=== PATIENT | female | born 1965 | race Asian ===

== ENCOUNTER 2019-07-02 16:54 | Inpatient (IN) | payer BC ==
[~2019-07-02] VITALS: Ht 167.6 cm; Wt 83.5 kg
[2019-07-02] VITALS (13 sets, daily range): BP systolic 107–212; BP diastolic 56–115; TEMP 97.8–98.5
[2019-07-02] MEDS ORDERED: UNITH DIRECT100 MCG PO (17:57)
[2019-07-02] MEDS ORDERED: CLONIDINE0.3 MG PO (17:58)
[2019-07-02] MEDS ORDERED: [UNRECOGNIZED DRUG - OTHER] PO (17:58)
[2019-07-02] MEDS ORDERED: MULTIVITAMI1 PO (17:59)
[2019-07-02] MEDS ORDERED: HYDRALAZINE25 MG PO (17:59)
[2019-07-02] MEDS ORDERED: JANUMET1 TA1 PO (18:00)
[2019-07-02] MEDS ORDERED: ENALAPRIL20 MG PO (18:00)
[2019-07-02] MEDS ORDERED: GLIP10TA55 PO (18:01)
[2019-07-02 20:00] LABS: POTASSIUM 5.2 mmol/L (3.6-5.2)
[2019-07-02 20:08] LABS: PLATELET COUNT 244 K/uL (152-353)
[2019-07-03] VITALS (17 sets, daily range): BP systolic 155–257; BP diastolic 68–123; TEMP 97.5–98.5; Ht 167.6 cm; Wt 83.5 kg
[2019-07-03] MEDS ORDERED: CARV12.5 PO (08:55)
[2019-07-03] MEDS ORDERED: HYDROCHLOROT12.5 M1 PO (08:55)
[2019-07-03 09:11] LABS: POTASSIUM 3.7 mmol/L (3.6-5.2)
[2019-07-03 10:01] LABS: PLATELET COUNT 260 K/uL (152-353)
[2019-07-04 01:30] VITALS: BP 92/42; TEMP 98.8
[2019-07-04 04:00] VITALS: BP 144/83; TEMP 99.4
[2019-07-04 08:00] VITALS: BP 202/100; TEMP 98.5
== END 2019-07-04 11:35 | disposition home or self-care (01) | DRG 305 ==
LOC: ED 16:54 → ICU 20:10 → ED 20:10 → ICU 20:20 → ED 20:20 → ICU 07-03 17:42 → MED/SURG 07-03 17:54
PROVIDERS: Family Medicine; ADMIT Family Medicine
DX: I10 Essential (primary) hypertension (principal); E87.1 Hypo-osmolality and hyponatremia; E03.8 Other specified hypothyroidism; E11.9 Type 2 diabetes mellitus without complications; I95.89 Other hypotension; E87.8 Other disorders of electrolyte and fluid balance, not elsewhere classified; Z91.19 Patient's noncompliance with other medical treatment and regimen
CPT/HCPCS: 36415; 80053; 80061; 81000; 83036; 84484; 85027; 85379; 93005; 96360; 96361; 96375; 99285; J0360; J1815; J1940; J2405